=== PATIENT | male | born 1980 | race Two or more races ===

== ENCOUNTER 2022-02-08 12:36 | Emergency (ER) | payer OTHER ==
[~2022-02-08] VITALS: Ht 167.6 cm; Wt 102.0 kg
[2022-02-08 16:44] VITALS: BP 114/69
[2022-02-08] MEDS ORDERED: LIDOCAINE 1% HCL (LOCAL ANESTH.) INJ 20ML MDV IJ ONE (16:45)
[2022-02-08] MEDS ORDERED: MAX35OO (17:49)
[2022-02-08] MEDS ORDERED: CEPH-510 PO (17:49)
[2022-02-08] MEDS ORDERED: NEOMYCIN-BACITRACIN-POLYM 15GM TOP OINT TOP SCH (22:00)
== END 2022-02-08 17:57 | disposition home or self-care (01) ==
LOC: ER 12:36 → EDBD 12:36 → ER 17:57
DX: S01.21XA Laceration without foreign body of nose, initial encounter (principal); X58.XXXA Exposure to other specified factors, initial encounter; Y93.89 Activity, other specified; Y92.89 Other specified places as the place of occurrence of the external cause; Y99.8 Other external cause status
CPT/HCPCS: 12011; 99283; J2001